=== PATIENT | male | born 2000 | race Two or more races ===

== ENCOUNTER 2024-08-07 22:19 | Emergency (ER) | payer OTHER | END 2024-08-08 02:03 | disposition left against medical advice (07) | LOC: ER 22:22 | DX: J11.1 Influenza due to unidentified influenza virus with other respiratory manifestations (principal); R53.83 Other fatigue; H53.149 Visual discomfort, unspecified; Z53.21 Procedure and treatment not carried out due to patient leaving prior to being seen by health care provider ==